=== PATIENT | male | born 1980 | race Caucasian/White ===

== ENCOUNTER 2022-08-22 00:23 | Day surgery (SDC) | payer OTHER, SELFPAY ==
[2022-08-13 11:16] VITALS: BMI 23.3
--- NOTE | 2022-08-13 11:20 | PC.NURSE ---
Report to the Outpatient Waiting Room, entrance under the green pavilion located off [facility], at time 1000 on date 08/22/22. Planned Procedure Time: 1200. Time changes happen often and if your time is changed the preop area will call you the afternoon before. - You and your visitor will be asked to self-screen and do not enter if you have any COVID symptoms. - Only one visitor is requested with a max of two and NO children visitors are allowed at this time. - The patient visitor may be requested to leave or wait in car when not with patient due to distancing restrictions. - A mask is optional within the hospital. Patients may have clear liquids (water, carbonated beverages, clear teas, apple juice) until 3 hours prior to surgery with a maximum of 20 ounces. - No food from midnight until time of surgery - Infants may have breast milk until 4 hours before surgery, formula 6 hours prior to surgery. - Children will be allowed to drink immediately following surgery. If applicable, please bring a bottle or sippy cup to assist with drinking. Juice, water, soda, and popsicles are readily available. For infants on formula, please bring formula the day of surgery. Pacifiers are allowed. Take the following medications with a SIP of water the morning of surgery: DULOXETINE Medications to discontinue per physician: VITAMINS/SUPPLEMENTS Date to take last dose: 08/18/21 Please no make-up, nail yakut, hairspray, perfume, deodorant, or body powder the day of surgery. No jewelry (including any body piercings) or valuables the day of surgery, leave them at home. Please take a shower or bath the night before, or the morning of, surgery with an antibacterial soap. Wear comfortable, loose fitting clothing. - Jewelry must be removed prior to entering the operating room. Rings and piercings that are not removed may be cut off. - The hospital will not accept responsibility for valuables. - Please leave all valuables, including medications, at home the day of surgery. If you are going home after surgery, a licensed route relief driver must drive you home. - NO public transportation without another adult if you receive anesthesia. - We recommend that an adult stay with you for 24 hours following discharge. - We also recommend that you do not drive, make important decision, drink alcoholic beverages, or take any drugs that were not prescribed by your health care provider for at least 24 hours after your discharge time. Follow any additional instructions given to you from your surgeon. If you or anyone in your household have experienced Covid symptoms in the past week, please notify your surgeon or the nurse liaison at the phone number below for possible testing. Telephone instructions given to RAYMUNDO - JENNIFER GARNETT and asked if any additional questions and then verbalized understanding. Patient advised to call surgeon office or pre surgery nurse liaison [phone] if any additional questions.
[2022-08-22] VITALS (7 sets, daily range): BP systolic 103–128; BP diastolic 47–71; PULSE 67–75; RESP 12–16; TEMP 36.5–36.7; O2SAT 99–100
[2022-08-22] MEDS: LACTATED RINGERS 1,000 ML 30 ML IV CONT ×2 (10:25→14:19)
--- NOTE | 2022-08-22 11:40 | WPDANESEPPF ---
Anes - Initial Pre Proc Eval Procedure: Operation Date: 08/22/22 12:00 Proposed Procedures p Penile Plication, Possible Excision of Previous Sutures - Tavia De Oliveira MD Date/Time: 08/22/22 11:40 Surgeon: Tavia De Oliveira MD Pre Op Diagnosis: joshe Patient Data Age: 42 Gender: M Height: 1.83 m Weight: 77.3 kg Last Vital Signs Temp 98.1 F 08/22/22 10:15 Pulse 72 08/22/22 10:15 Resp 16 08/22/22 10:15 BP 128/47 L 08/22/22 10:15 Pulse Ox 100 08/22/22 10:15 O2 Del Method Room Air 08/22/22 10:15 Allergies Allergy/AdvReac Type Severity Reaction Status Date / Time No Known Allergies Allergy Verified 08/22/22 11:18 Home Medications Medication Instructions Recorded Confirmed Type adalimumab 40 mg/0.4 mL 40 mg subcut [id number] 08/13/22 08/13/22 History subcutaneous syringe kit (Humira(CF)) duloxetine 30 mg capsule,delayed 60 mg PO DAILY 08/13/22 08/13/22 History release folic acid 1 mg tablet 1 mg PO DAILY 08/13/22 08/13/22 History methotrexate sodium 2.5 mg tablet 10 mg PO WEEKLY 08/13/22 08/13/22 History mometasone 50 mcg/actuation nasal 2 spray intranasal DAILY 08/13/22 08/13/22 History spray montelukast 10 mg tablet 10 mg PO HS 08/13/22 08/13/22 History Patient hx anesthesia problems: none Family hx anesthesia problems: none Results Review: All pre-operative results and documents have been reviewed as part of the pre-operative evaluation. [facility] Social History Social History Smoking packs per day: 1 Smoking cigarettes per day: 20.0 Years smoked: 10 Smoking pack-years: 10.00 Smoking status: Former smoker Tobacco type: cigarettes Smoking end date: 07/22/15 Alcohol intake: never Substance use: never Substance use type: does not use Living arrangements: alone Spiritual care concerns: No Anes - Eval Final PreProcedure Day of Procedure 08/22/22 11:40 Patient weight: normal Heart: regular rate and rhythm Lungs: clear to auscultation Airway: Mallampati scale class II Neurological: alert and oriented Last oral intake: >/= 8 hours ASA classification: II Emergent: no Anesthetic plan: proceed Anesthesia type and monitoring: general LMA and standard monitoring Results Review: All pre-operative results and documents have been reviewed as part of the pre-operative evaluation. Informed Consent: The patient's anesthetic plan and its attendant risks and benefits were discussed with the patient/family/POA. Questions were solicited and answers provided to the satisfaction of the patient/family/POA.
--- NOTE | 2022-08-22 12:12 | WPDHPUPDATE1 ---
History and Physical Update Update Date/Time: 08/22/22 12:12 History and Physical has been reviewed, including an updated exam of the patient. There are NO changes in the patient's condition. Risks, benefits, and alternatives have been discussed and questions answered. Patient agrees to proceed with procedure.
--- NOTE | 2022-08-22 12:13 | P.HP_ITS ---
H&P: HPI History of Present Illness Date/Time: 08/22/22 12:13 Chief Complaint: penile curvature [facility] Past Medical History Medical History (Updated 08/22/22 @ 12:14 by Tavia De Oliveira MD) Peyronie disease Social History Social History Smoking packs per day: 1 Smoking cigarettes per day: 20.0 Years smoked: 10 Smoking pack-years: 10.00 Smoking status: Former smoker Tobacco type: cigarettes Smoking end date: 07/22/15 Alcohol intake: never Substance use: never Substance use type: does not use Living arrangements: alone Spiritual care concerns: No Meds Home Medications and Allergies Home Medications Medication Instructions Recorded Confirmed Type adalimumab 40 mg/0.4 mL 40 mg subcut [id number] 08/13/22 08/13/22 History subcutaneous syringe kit (Humira(CF)) duloxetine 30 mg capsule,delayed 60 mg PO DAILY 08/13/22 08/13/22 History release folic acid 1 mg tablet 1 mg PO DAILY 08/13/22 08/13/22 History methotrexate sodium 2.5 mg tablet 10 mg PO WEEKLY 08/13/22 08/13/22 History mometasone 50 mcg/actuation nasal 2 spray intranasal DAILY 08/13/22 08/13/22 History spray montelukast 10 mg tablet 10 mg PO HS 08/13/22 08/13/22 History Allergies Allergy/AdvReac Type Severity Reaction Status Date / Time No Known Allergies Allergy Verified 08/22/22 11:18 Vital Signs Vital Signs - 24 hr 08/22/22 10:15 Temperature 36.7 C Pulse Rate 72 Respiratory Rate 16 Blood Pressure 128/47 L Pulse Oximetry 100 Oxygen Delivery Room Air Exam Narrative: pt awake and alert breathing unlabored palpable sutures present from previous procedure Assessment and Plan Assessment and plan (1) Peyronie disease: Code(s): N48.6 - Induration penis plastica Status: Acute Plan Plan correction of right sided penile curvature with either excision of previous sutures or contralateral plication procedure - risks, benefits and alternatives reviewed in detail
[2022-08-22] MEDS: ceFAZolin 2 GM/D5W 50 ML 2 GM/50 ML BAG IVPB (12:29)
[2022-08-22] MEDS: BUPivacaine HCL 0.5% 10 ML AMP 20 ML INFILTRATE (12:29)
[2022-08-22] MEDS: LIDOCAINE HCL 1% PF 30 ML VIAL 20 ML INFILTRATE (12:29)
[2022-08-22] MEDS: NEOMYCIN/POLYMYXIN/BACITR/HC OINT 15 GM TUBE 1 APPLIC TOPICAL (13:29)
--- NOTE | 2022-08-22 14:22 | W.PM.PROC2 ---
Procedure Note - Detailed Date of Procedure 08/22/22 Pre-op Diagnosis peyronie's disease with previous penile plication procedure Post-op Diagnosis Same Procedure Performed Left-sided penile plication procedure, Excision of previous right-sided penile plication suture, artificial erection with pharmacologic agent Surgeon Tavia De Oliveira MD Anesthesia General and Local Description of Procedure Informed consent was obtained. Patient taken the operating. He was given preoperative IV antibiotics. He was induced in seizure. A penile block was performed with 0.5% Marcaine without epinephrine. We then placed a 2-0 Prolene suture through the glans to use as retraction. 16 F Zarate catheter was inserted for urethral identification purposes. Artificial erection with 2 lidocaine was then performed revealing approximately 30-40degree right-sided curvature 2.5cm proximal to the coronal margin. We then opened the right lateral aspect of the previous circumcised incision. At this point we carefully dissected the scar and dartos proposition player of the corporal body, approaching laterally to avoid the neurovascular bundle. We identified the Ethibond suture at the area of maximal curvature. We dissected the tissue is that was immediately adherent to the suture and then the suture was cut and removed. At this point artificial erection was performed and revealed straightening of his erection with some extravasation of fluid from the corporal body an area of previous plication suture. We then placed 3 interrupted 2-0 Vicryl sutures to close the corporotomy in a watertight fashion. Artificial erection at this point did reveal improvement of the curvature down to 25 to 30? and no residual extravasation. At this point we extended our incision to the left and carefully dissected the dartos and Nolasco's layer laterally adjacent to the Zarate catheter, taking great care not to injure the urethra or the neurovascular bundle. Using 2 0 Ethibond sutures we used a modified Lue technique to perform 2 plication sutures at the area of maximal curvature. At this point artificial erection revealed resolution of curvature with no more than 10? of curvature in any direction. Irrigation was then performed. We then closed Nolasco's fascia with 3-0 Vicryl suture over the plication sutures. Deep dermal layer was closed with 3-0 Vicryl suture. Skin was closed with a horizontal mattress 4-0 Monocryl closure. Surgical glue was placed. Compressive dressing was placed. Glans stay suture and Zarate catheter removed. Patient was taken to recovery room in stable condition. Estimated Blood Loss 10 Complications No immediate complications Condition Stable Disposition PACU
[2022-08-22] MEDS: ONDANSETRON INJ 4 MG/2 ML VIAL IV PUSH (14:32)
[2022-08-22] MEDS: SCOPOLAMINE 1.5 MG PATCH TRANSDERM (14:45)
[2022-08-22] MEDS: diphenhydrAMINE HCl INJ 50 MG/ML VIAL 12.5 MG IV PUSH (14:47)
--- NOTE | 2022-08-22 15:38 | SUR.PHASEII ---
RN called pharmacy to see if medications were sent from the office. There is pain medicine and a stool softener waiting for patient.
== END 2022-08-22 16:10 | disposition home or self-care (01) ==
PROVIDERS: Visit Provider Urology
PROC: (CPT 54360; principal; 2022-08-22 12:00)
DX: N48.6 Induration penis plastica (principal); Z87.891 Personal history of nicotine dependence; Z79.620 Long term (current) use of immunosuppressive biologic
CPT/HCPCS: 54360; 54235; A9270; J0690; J1100; J1170; J1200; J2250; J2405; J2704; J3010; J7030; J7120